=== PATIENT | female | born 1990 | race African-American/Black ===

== ENCOUNTER 2024-02-21 05:30 | Inpatient (IN) | payer OTHER ==
[2024-02-21 06:03] VITALS: BMI 36.6
[2024-02-21] MEDS ORDERED: Methylergonovine 0.2 MG/ML VIAL IM PRN (06:26)
[2024-02-21] MEDS ORDERED: Carboprost 250 MCG/ML AMP IM PRN (06:26)
[2024-02-21] MEDS ORDERED: Lidocaine 1% (PF) 30 ML VIAL SC PRN (06:26)
[2024-02-21] MEDS ORDERED: Diphenoxylate HCl/Atropine Tablet PO PRN (06:26)
[2024-02-21] MEDS ORDERED: Misoprostol 200 MCG TAB PR PRN (06:26)
[2024-02-21] MEDS ORDERED: Promethazine HCl 25 MG/ML VIAL IM PRN (06:26)
[2024-02-21] MEDS ORDERED: hydrALAZINE 20 MG/ML VIAL SLOW IVP PRN (06:26)
[2024-02-21] MEDS ORDERED: Tranexamic Acid 1,000 MG/10 ML VIAL IVP PRN (06:26)
[2024-02-21] MEDS ORDERED: Oxytocin 30 units/NS 500 ML 500 ML IV SCH ×2 (06:30)
[2024-02-21 07:24] LABS: Hematocrit 31.7 % (34.9-44.5); Hemoglobin 10.3 g/dL (12.0-15.5); Mean Corpuscular HGB CONC 32.5 g/dL (32.0-36.0); Mean Corpuscular Volume 80.1 fL (81.6-98.3); Mean Platelet Volume 10.5 fL (7.4-10.4); Platelet Count 185 10x3/uL (150-450); RBC Distribution Width 14.4 % (11.5-14.5); Red Blood Cell (RBC) Count 3.96 10x6/uL (3.90-5.03); White Blood Cell (WBC) Count 8.05 10x3/uL (3.5-10.5)
[2024-02-21 07:57] LABS: Syphilis Antibody Nonreactive (Nonreactive); Syphilis Antibody Index 0.17 S/CO (<1.00 Non-Reactive)
[2024-02-21 07:58] LABS: HBsAg Index 0.28 S/CO (0-0.99); Hep B Surf Ag - L&D Non-Reactive S/CO (NonReactive)
[2024-02-21] MEDS: fentaNYL 50 mcg/mL 1 mL Vial SLOW IVP PRN (12:46)
[2024-02-21] MEDS: Oxytocin 30 units/NS 500 ML 500 ML IV SCH (15:18)
[2024-02-21] MEDS: Lactated Ringer's 1,000 ML IV SCH (15:22)
[2024-02-21] MEDS: Ondansetron PF 4 MG/2 ML Vial IVP PRN (20:55)
[2024-02-22] MEDS: fentaNYL/Ropivacaine Epidural 100 ML ONE (00:26)
[2024-02-22] MEDS ORDERED: Milk Of Magnesia 30 ML UDCUP PO PRN (02:29)
[2024-02-22] MEDS ORDERED: Bisacodyl 10 MG SUPP PR PRN (02:29)
[2024-02-22] MEDS ORDERED: hydrALAZINE 20 MG/ML VIAL SLOW IVP PRN (02:29)
[2024-02-22] MEDS ORDERED: Boostrix 0.5 ML (Tdap) VIAL (>/=7 yrs of age) IM ONE (02:29)
[2024-02-22] MEDS: Ibuprofen 800 MG TAB PO PRN (02:46)
[2024-02-22] MEDS: Acetaminophen 500 MG TAB PO PRN (02:46)
[2024-02-22] MEDS: Ferrous Sulfate 325 MG TAB PO SCH (18:12)
[2024-02-22] MEDS: Ibuprofen 800 MG TAB PO SCH (18:12)
[2024-02-22] MEDS: Docusate 100 MG CAP PO PRN (20:48)
[2024-02-23 07:52] VITALS: BP 124/77; TEMP 98.3
== END 2024-02-23 13:40 | disposition home or self-care (01) | DRG 807 ==
LOC: CSHLD 05:35 → CSHANTE 02-22 11:20
PROVIDERS: ADMIT Family Medicine; ATTEND Family Medicine
PROC: 10907ZC Drainage of Amniotic Fluid, Therapeutic from Products of Conception, Via Natural or Artificial Opening (ICD-10-PCS; 2024-02-21)
PROC: 10E0XZZ Delivery of Products of Conception, External Approach (ICD-10-PCS; principal; 2024-02-22)
DX: O36.5930 Maternal care for other known or suspected poor fetal growth, third trimester, not applicable or unspecified (principal); Z37.0 Single live birth; Z3A.39 39 weeks gestation of pregnancy; O70.0 First degree perineal laceration during delivery; Z79.899 Other long term (current) drug therapy
CPT/HCPCS: 36415; 51702; 85027; 86780; 86850; 86900; 86901; 87340; J2405; J2590; J3010; J7120